=== PATIENT | female | born 1950 | race Caucasian/White ===

== ENCOUNTER → 2016-04-24 | Outpatient (REF) | payer BC ==
[2016-04-24 12:09] LABS: ALBUMIN/GLOBULIN RATIO 1.29 (1.00-1.93); ALKALINE PHOSPHATASE 102 U/L (45-117); ALT/SGPT 28 U/L (12-78); ANION GAP 9 MEQ/L (8-16); AST/SGOT 23 U/L (15-37); BILIRUBIN,TOTAL 0.5 MG/DL (0.2-1.0); BLOOD UREA NITROGEN 12 MG/DL (7-18); CALCIUM LEVEL 8.5 MG/DL (8.8-10.2); CARBON DIOXIDE LEVEL 27 MEQ/L (21-32); CHLORIDE LEVEL 105 MEQ/L (98-107); CHOLESTEROL LEVEL 221 MG/DL (<200); CREATININE FOR GFR 0.88 MG/DL (0.55-1.02); FREE T4 0.75 NG/DL (0.76-1.46); GLOMERULAR FILTRATION RATE > 60.0 (>45); GLUCOSE, FASTING 92 MG/DL (80-110); POTASSIUM SERUM 4.2 MEQ/L (3.5-5.1); SODIUM LEVEL 141 MEQ/L (136-145); TOTAL PROTEIN 7.1 GM/DL (6.4-8.2); TRIGLYCERIDES LEVEL 337 MG/DL (<150)
== END ==
LOC: M LABDRAW1 11:23
PROVIDERS: ATTEND Physician Assistant Medical
DX: E78.2 Mixed hyperlipidemia (principal); I10 Essential (primary) hypertension; E03.9 Hypothyroidism, unspecified; E55.9 Vitamin D deficiency, unspecified

== ENCOUNTER → 2016-06-15 | Outpatient (REF) | payer BC ==
[2016-06-15 10:59] LABS: FREE T4 1.54 NG/DL (0.76-1.46)
== END ==
LOC: M LABDRAW1 07:51
PROVIDERS: ATTEND Emergency Medicine
DX: E03.9 Hypothyroidism, unspecified (principal)

== ENCOUNTER → 2016-09-19 | Outpatient (CLI) | payer BC ==
[~2016-09-19] MED LIST: LEVO25TA5 PO; MULT1TAB16 PO; OMEP40CA2 PO
[2016-09-19 16:50] LABS: ANION GAP 10 MEQ/L (8-16); BLOOD UREA NITROGEN 14 MG/DL (7-18); CALCIUM LEVEL 9.3 MG/DL (8.8-10.2); CARBON DIOXIDE LEVEL 27 MEQ/L (21-32); CHLORIDE LEVEL 106 MEQ/L (98-107); CREATININE FOR GFR 0.79 MG/DL (0.55-1.02); GLOMERULAR FILTRATION RATE > 60.0 (>45); GLUCOSE, FASTING 90 MG/DL (80-110); SODIUM LEVEL 143 MEQ/L (136-145)
[2016-09-19 17:00] LABS: BASO # 0.1 K/mm3 (0.0-0.2); BASO % 1.2 % (0.0-1.0); EOS # 0.2 K/mm3 (0.0-0.50); EOS % 3.3 % (0.0-3.0); LARGE UNSTAINED CELL # 0.1 K/mm3 (0.0-0.4); LARGE UNSTAINED CELL % 1.5 % (0.0-4.0); LYMPH # 1.8 K/mm3 (1.5-4.5); LYMPH % 30.4 % (24.0-44.0); MEAN CORPUSCULAR HEMOGLOBIN 32.5 pg (27.0-33.0); MEAN CORPUSCULAR HGB CONC 35.5 g/dl (32.0-36.5); MEAN CORPUSCULAR VOLUME 91.5 fl (80.0-96.0); MONO # 0.3 K/mm3 (0.0-0.8); MONO % 5.1 % (0.0-5.0); NEUTROPHILS # 3.4 K/mm3 (1.8-7.7); NEUTROPHILS % 58.5 % (36.0-66.0); PLATELET COUNT, AUTOMATED 254 k/mm3 (150-450); RED CELL DISTRIBUTION WIDTH 12.9 % (11.5-14.5); WHITE BLOOD COUNT 5.8 K/mm3 (4.0-10.0)
== END ==
LOC: M LRY 11:22
PROVIDERS: ATTEND Podiatrist
DX: Z01.818 Encounter for other preprocedural examination (principal)

== ENCOUNTER 2016-09-28 08:17 | Day surgery (SDC) | payer BC ==
[~2016-09-28] VITALS: Ht 152.4 cm; Wt 62.1 kg
[~2016-09-28 08:17] MED LIST changes: +BACITRACIN PWD 50,000 UNITS VIAL As Ordered ONE; +BUPIVACAINE HCL 0.5% 30 ML VIAL As Ordered ONE; +LIDOCAINE 2% MDV 20 ML VIAL As Ordered ONE; +NEOSPORIN GU IRRIG 20 ML VIAL As Ordered ONE; +ROPIvacaine 0.5% 30 ML INJECTION (J2795) As Ordered ONE; +dexameTHASONE 4 MG/ML 1ML VIAL (J1100) As Ordered ONE
[2016-09-28] MEDS ORDERED: LR 1,000 ML IV ONE (08:30)
[2016-09-28] MEDS ORDERED: LIDOCAINE 1% SDV 5 ML VIAL SQ ONE (09:00)
[2016-09-28] MEDS ORDERED: MIDAZOLAM INJ 2 MG/2 ML VIAL (J2250) As Ordered ONE (11:25)
[2016-09-28] MEDS ORDERED: KETAMINE HCL 200 MG/20 ML VIAL As Ordered ONE (11:25)
[2016-09-28] MEDS ORDERED: ONDANSETRON 4MG/2ML VIAL (J2405) As Ordered ONE (12:02)
[2016-09-28] MEDS ORDERED: LIDOCAINE 2% INJ 100 MG/5 ML SDV (FOR ANES.) As Ordered ONE (12:02)
[2016-09-28] MEDS ORDERED: dexameTHASONE 4 MG/ML 1ML VIAL (J1100) As Ordered ONE (12:02)
[2016-09-28] MEDS ORDERED: PROPOFOL 200 MG/20 ML VIAL As Ordered ONE (12:02)
[2016-09-28] MEDS ORDERED: ONDANSETRON 4MG/2ML VIAL (J2405) IV PRN (13:00)
[2016-09-28] MEDS ORDERED: PERCOCET 5MG/325MG TAB PO PRN (13:00)
[2016-09-28] MEDS ORDERED: LR 1,000 ML IV SCH (13:00)
[2016-09-28] MEDS ORDERED: fentaNYL 100 MCG/2 ML INJECTION (J3010) IV PRN (13:00)
[2016-09-28 13:35] VITALS: BP 176/79
--- NOTE | 2016-09-29 17:12 | RO ---
DATE OF PROCEDURE: 09/28/2016 PREPROCEDURE DIAGNOSIS: Loss of fixation with distal migration DigiFuse 3rd toe right foot. POSTPROCEDURE DIAGNOSIS: Loss of fixation with distal migration DigiFuse 3rd toe right foot. PROCEDURE: Removal of screw 3rd toe right foot. SURGEON: Dr. Bobo Durand PROFESSIONAL APPLICATION DESIGNER: None ANESTHESIA: Local MAC. IRRIGATION: Dilute bacitracin, neomycin and polymyxin B solution. HEMOSTASIS: Ankle pneumatic tourniquet at 200 mmHg for 8 minutes. DESCRIPTION OF PROCEDURE: On 09/28/2016, this 66-year-old female was taken from her hospital room to the operating room and placed on the operating table in the supine position. Following the induction of IV sedation and local and regional anesthesia, the right lower extremity was prepped and draped in the usual aseptic manner. Attention was directed to the lateral surface of the toe where a screw could be palpated. A 1 cm incision was then placed on the lateral surface of the toe and dissection was carefully carried down to the screw, which a small margin could be palpated. Utilizing a periosteal elevator, the more medial margin of the screw head was freed from the surrounding osseous tissues to allow removal of the screw. However, the screwdriver could not be utilized since it would not fit in the available area next to the middle phalanx. Therefore, a needle route delivery service driver was used to grasp the screw and the screw was removed carefully, ensuring not to either fracture the toe or break the implant. Implant was removed. The wound was then flushed with copious amounts of dilute bacitracin, neomycin and polymyxin B solution. Closure was obtained with #4-0 Prolene in a simple interrupted type fashion. Attention was directed towards bandaging where a sterile compressive bandage was applied consisting of Adaptic, 4 x 4's, 4 x 4 splints, Antonio, Kerlix and Coban. Ankle pneumatic tourniquet was rapidly deflated and instantaneous capillary filling time was noted in digits 1 through 5 of the patient's right foot. Patient having apparently tolerated the surgical procedure well was taken from the operating room to the recovery room with vital signs stable, patient afebrile, further monitoring by the anesthesia department. All surgical specimens removed during the operative procedure were sent to Pathology for gross and microscopic examination. Postoperative instructions given upon discharge. KIM
== END 2016-09-28 13:37 | disposition home or self-care (01) ==
LOC: M SDC 08:17
PROVIDERS: ATTEND Podiatrist
DX: T84.223A Displacement of internal fixation device of bones of foot and toes, initial encounter (principal); E03.9 Hypothyroidism, unspecified; K21.9 Gastro-esophageal reflux disease without esophagitis; M12.9 Arthropathy, unspecified; Z88.5 Allergy status to narcotic agent; Z79.899 Other long term (current) drug therapy
CPT/HCPCS: 20670; J1100; J2250; J2405

== ENCOUNTER → 2017-07-09 | Outpatient (REF) | payer BC ==
[2017-07-11 14:17] LABS: HPV HYBRID CAPTURE II Negative (Negative)
== END ==
LOC: M LAB REF 10:15
DX: Z01.419 Encounter for gynecological examination (general) (routine) without abnormal findings (principal)
CPT/HCPCS: G0123

== ENCOUNTER → 2017-07-16 | Outpatient (REF) | payer BC ==
[2017-07-16 12:34] LABS: TOTAL 25(OH) VITAMIN D 42.6 NG/ML (30.0-100.0)
[2017-07-16 12:47] LABS: ALBUMIN 3.7 GM/DL (3.2-5.2); ALBUMIN/GLOBULIN RATIO 1.03 (1.00-1.93); ALKALINE PHOSPHATASE 81 U/L (45-117); ALT/SGPT 24 U/L (12-78); ANION GAP 4 MEQ/L (8-16); AST/SGOT 21 U/L (7-37); BILIRUBIN,TOTAL 0.5 MG/DL (0.2-1.0); BLOOD UREA NITROGEN 14 MG/DL (7-18); CALCIUM LEVEL 8.9 MG/DL (8.8-10.2); CARBON DIOXIDE LEVEL 32 MEQ/L (21-32); CHLORIDE LEVEL 108 MEQ/L (98-107); CHOLESTEROL LEVEL 216 MG/DL (<200); CHOLESTEROL RISK RATIO 4.909 (<5); CREATININE FOR GFR 0.81 MG/DL (0.55-1.30); FREE T4 1.12 NG/DL (0.76-1.46); GLOMERULAR FILTRATION RATE > 60.0 (>45); GLUCOSE, FASTING 92 MG/DL (70-100); HDL CHOLESTEROL 44 MG/DL (>40); LDL CHOLESTEROL 132.6 MG/DL (<100); NON-HDL-C 172 MG/DL; POTASSIUM SERUM 4.5 MEQ/L (3.5-5.1); SODIUM LEVEL 144 MEQ/L (136-145); THYROID STIMULATING HORMONE 0.547 uIU/ML (0.358-3.740); TOTAL PROTEIN 7.3 GM/DL (6.4-8.2); TRIGLYCERIDES LEVEL 197 MG/DL (<150)
== END ==
LOC: M LABDRAW1 09:04
DX: I10 Essential (primary) hypertension (principal); E78.2 Mixed hyperlipidemia; E03.9 Hypothyroidism, unspecified; E55.9 Vitamin D deficiency, unspecified
CPT/HCPCS: 84443

== ENCOUNTER → 2018-06-10 | Outpatient (REF) | payer BC ==
[~2018-06-10] MED LIST changes: -BACITRACIN PWD 50,000 UNITS VIAL As Ordered ONE; -BUPIVACAINE HCL 0.5% 30 ML VIAL As Ordered ONE; -LIDOCAINE 2% MDV 20 ML VIAL As Ordered ONE; -NEOSPORIN GU IRRIG 20 ML VIAL As Ordered ONE; -ROPIvacaine 0.5% 30 ML INJECTION (J2795) As Ordered ONE; -dexameTHASONE 4 MG/ML 1ML VIAL (J1100) As Ordered ONE
[2018-06-10 12:07] LABS: BASO # 0.1 10^3/uL (0.0-0.2); BASO % 0.9 % (0.0-1.0); EOS # 0.2 10^3/uL (0.0-0.50); EOS % 4.1 % (0.0-3.0); HEMATOCRIT 41.3 % (36.0-47.0); HEMOGLOBIN 13.9 g/dl (12.0-15.5); LYMPH # 1.6 10^3/uL (1.5-4.5); LYMPH % 27.9 % (24.0-44.0); MEAN CORPUSCULAR HEMOGLOBIN 31.2 pg (27.0-33.0); MEAN CORPUSCULAR HGB CONC 33.7 g/dl (32.0-36.5); MEAN CORPUSCULAR VOLUME 92.8 fl (80.0-96.0); MONO # 0.5 10^3/uL (0.0-0.8); NEUTROPHILS # 3.2 10^3/uL (1.8-7.7); NEUTROPHILS % 57.7 % (36.0-66.0); PLATELET COUNT, AUTOMATED 261 10^3/uL (150-450); RED BLOOD COUNT 4.45 10^6/uL (4.00-5.40); WHITE BLOOD COUNT 5.6 10^3/uL (4.0-10.0)
[2018-06-10 12:41] LABS: ALBUMIN 3.5 GM/DL (3.2-5.2); ALT/SGPT 25 U/L (12-78); BILIRUBIN,DIRECT < 0.1 MG/DL (0.0-0.2); BILIRUBIN,TOTAL 0.5 MG/DL (0.2-1.0); BLOOD UREA NITROGEN 14 MG/DL (7-18); CALCIUM LEVEL 8.5 MG/DL (8.8-10.2); CARBON DIOXIDE LEVEL 29 MEQ/L (21-32); CHLORIDE LEVEL 108 MEQ/L (98-107); CREATININE FOR GFR 0.78 MG/DL (0.55-1.30); FREE T4 1.06 NG/DL (0.76-1.46); GLOMERULAR FILTRATION RATE > 60.0 (>45); GLUCOSE, FASTING 90 MG/DL (70-100); POTASSIUM SERUM 4.4 MEQ/L (3.5-5.1); SODIUM LEVEL 142 MEQ/L (136-145); THYROID STIMULATING HORMONE 0.547 uIU/ML (0.358-3.740); TOTAL 25(OH) VITAMIN D 43.6 NG/ML (30.0-100.0); TOTAL PROTEIN 7.1 GM/DL (6.4-8.2)
== END ==
LOC: M LABDRAW1 11:54
PROVIDERS: ATTEND Family Medicine
DX: I10 Essential (primary) hypertension (principal); E03.9 Hypothyroidism, unspecified; E55.9 Vitamin D deficiency, unspecified

== ENCOUNTER 2018-12-23 08:30 | Day surgery (SDC) | payer BC ==
[~2018-12-23] VITALS: Ht 177.8 cm; Wt 66.2 kg
[~2018-12-23 08:30] MED LIST changes: +LEVO100T5 PO; +NS 1,000 ML IV ONE; -OMEP40CA2 PO; +OMEP40CA97 PO
[2018-12-23] MEDS ORDERED: LIDOCAINE 2% INJ 100 MG/5 ML SDV (FOR ANES.) As Ordered ONE (11:09)
[2018-12-23] MEDS ORDERED: PROPOFOL 200 MG/20 ML VIAL As Ordered ONE (11:09)
--- NOTE | 2018-12-23 11:29 | ROOR ---
Patient Name: Linda Roberts Procedure Date: 12/23/2018 11:02 AM Date of : 1950 Age: 68 Room: [facility] Gender: Female Note Status: Finalized Procedure: Colonoscopy Indications: High risk colon cancer surveillance: Personal history of colonic polyps Providers: Dayne PAREDES MD Referring MD: NAE BANG NP Requesting Provider: Medicines: Monitored Anesthesia Care Complications: No immediate complications. Procedure: Pre-Anesthesia Assessment: - The heart rate, respiratory rate, oxygen saturations, blood pressure, adequacy of pulmonary ventilation, and response to care were monitored throughout the procedure. The Colonoscope was introduced through the anus and advanced to the terminal ileum, with identification of the appendiceal orifice and IC valve. The colonoscopy was somewhat difficult due to multiple diverticula in the colon. The patient tolerated the procedure well. The quality of the bowel preparation was good. Findings: The perianal and digital rectal examinations were normal. A 5 mm polyp was found in the cecum. The polyp was sessile. The polyp was removed with a cold snare. Resection and retrieval were complete. Multiple small and large-mouthed diverticula were found in the sigmoid colon, descending colon, hepatic flexure and ascending colon. There was evidence of diverticular spasm. Internal hemorrhoids were found during retroflexion. The hemorrhoids were moderate. The exam was otherwise without abnormality on direct and retroflexion views. Impression: - One 5 mm polyp in the cecum, removed with a cold snare. Resected and retrieved. - Moderate diverticulosis in the sigmoid colon, in the descending colon, at the hepatic flexure and in the ascending colon. There was evidence of diverticular spasm. - Internal hemorrhoids. - The examination was otherwise normal on direct and retroflexion views. Recommendation: - Repeat colonoscopy in 5 years for surveillance. Dayne Paredes MD Dayne PAREDES MD 12/23/2018 11:28:56 AM Electronically signed by Dayne PAREDES MD Number of Addenda: 0 Note Initiated On: 12/23/2018 11:02 AM Estimated Blood Loss: Estimated blood loss: none.
[2018-12-23 12:00] VITALS: BP 160/80
== END 2018-12-23 12:15 | disposition home or self-care (01) ==
LOC: M OPP 08:30
PROVIDERS: ATTEND Internal Medicine Gastroenterology
DX: Z12.11 Encounter for screening for malignant neoplasm of colon (principal); Z86.010 Personal history of colon polyps; D12.0 Benign neoplasm of cecum; K64.8 Other hemorrhoids; K57.30 Diverticulosis of large intestine without perforation or abscess without bleeding; K21.9 Gastro-esophageal reflux disease without esophagitis; E03.9 Hypothyroidism, unspecified; Z79.899 Other long term (current) drug therapy; Z88.5 Allergy status to narcotic agent

== ENCOUNTER → 2020-05-24 | Outpatient (CLI) | payer BC ==
[~2020-05-24] MED LIST changes: -NS 1,000 ML IV ONE
--- NOTE | 2020-05-24 10:08 | REPPI ---
INDICATION: M25.362 OTHER INSTABILITY LEFT KNEE COMPARISON: None. TECHNIQUE: AP, lateral, bilateral oblique and sunrise views. FINDINGS: Mild/moderate essentially age-related tricompartmental osteoarthritic degenerative changes include subtle cortical irregularity and very minimal early osteophyte formation primarily at the femoral condyles and superior margin of the patella. There is subchondral sclerosis along the tibial plateau and posterior patella with associated medial and patellofemoral joint space narrowing. Lateral view cannot exclude a small suprapatellar effusion. Small amounts of chondrocalcinosis are also suggested. No acute fracture or dislocation. IMPRESSION: Moderate relatively age-related arthritic degenerative changes. <Electronically signed by Yoni Robin > 05/24/20 1003
== END ==
LOC: M PLAIMG 09:08
PROVIDERS: ATTEND Nurse Practitioner Adult Health
DX: M25.362 Other instability, left knee (principal); M17.12 Unilateral primary osteoarthritis, left knee

== ENCOUNTER → 2020-06-04 | Outpatient (CLI) | payer BC ==
--- NOTE | 2020-06-04 10:52 | REP ---
INDICATION: PAIN LEFT KNEE. COMPARISON: 05/24/2020. TECHNIQUE: Standing AP view bilateral knees performed. FINDINGS: There is no acute fracture, dislocation or intrinsic bone disease. There is no significant joint space narrowing on the right. On the left there is moderate lateral joint space narrowing. IMPRESSION: Moderate lateral joint space narrowing on the left. <Electronically signed by Napoleon Lopez > 06/04/20 1043
== END ==
LOC: M SOG 08:33
PROVIDERS: ATTEND Orthopaedic Surgery Adult Reconstructive Orthopaedic Surgery
DX: M25.562 Pain in left knee (principal)

== ENCOUNTER → 2020-09-09 | Outpatient (CLI) | payer BC ==
[~2020-09-09] MED LIST changes: +OMEP40CA4 PO; -OMEP40CA97 PO
--- NOTE | 2020-09-09 15:58 | REP ---
INDICATION: INTERNAL DERANGEMENT. COMPARISON: None. TECHNIQUE: Sagittal spin-echo proton density, T2 STIR and T2 FLASH. Coronal spin-echo proton density and fat suppressed proton density. Axial fat suppressed proton density. FINDINGS: Grade 3 signal changes seen within a truncated posterior horn of the medial meniscus. No abnormal signal is seen in the anterior horn. There is grade 3 signal change seen in both anterior and posterior horns of the lateral meniscus with grade 2 signal change seen in the periphery from anterior to posterior. The posterior cruciate ligament is wavy and bowed but intact. The anterior cruciate ligament is indistinct. The quadriceps and patellar tendons are intact. There is T2 hyper signal seen within and surrounding the medial collateral ligament which is intact. The lateral collateral ligament is intact. There is patchy and linear T2 hyper signal seen in the medial patellar retinaculum at the patellar attachment. There is thinning and irregularity of all articular cartilages. There is tricompartmental marginal osteophytosis. There is lateral compartmental and patellofemoral joint space narrowing. Patchy T2 hyper signal is seen in the proximal lateral tibial metaphysis. Subchondral T2 hyper signal is seen in the anterolateral femoral condyle with a like finding seen in the posterolateral femoral condyle. There is a joint effusion. There is parapatellar plica. IMPRESSION: 1. The posterior horn of the medial meniscus is torn and due to meniscal truncation I cannot rule out a bucket-handle component. 2. Both anterior and posterior horns of the lateral meniscus are torn with a large peripheral component. 3. The anterior cruciate ligament is torn. 4. The medial collateral ligament is sprained. 5. Possible partial tear medial patellar retinaculum as described above. 6. Proximal lateral tibial metaphyseal marrow edema consistent with osseous contusion. 7. Tricompartmental degenerative changes with chondromalacia and osteophytosis along with lateral compartmental and patellofemoral joint space narrowing. 8. Focal subchondral edema in the anterior and posterolateral femoral condyle as described above. 9. There is a joint effusion. 10. Other findings as described above. <Electronically signed by Venkata Ruano > 09/09/20 [id number]
== END ==
LOC: M PLAIMG 14:38
PROVIDERS: ATTEND Orthopaedic Surgery Adult Reconstructive Orthopaedic Surgery
DX: M23.92 Unspecified internal derangement of left knee (principal); S83.242A Other tear of medial meniscus, current injury, left knee, initial encounter; X58.XXXA Exposure to other specified factors, initial encounter; Y92.9 Unspecified place or not applicable; Y93.9 Activity, unspecified; Y99.9 Unspecified external cause status

== ENCOUNTER 2020-11-19 09:17 | Outpatient (RCR) | payer BC ==
[2020-11-24] MEDS ORDERED: CVS1CAP5 PO (08:52)
== END 2020-12-05 ==
LOC: M PT 09:17
PROVIDERS: ATTEND Orthopaedic Surgery Adult Reconstructive Orthopaedic Surgery
DX: M23.52 Chronic instability of knee, left knee (principal)

== ENCOUNTER → 2020-11-23 | Outpatient (CLI) | payer BC ==
[~2020-11-23] MED LIST changes: +CVS1CAP5 PO
--- NOTE | 2020-11-23 15:27 | REP ---
INDICATION: CHRONIC INSTABILITY OF L KNEE. COMPARISON: None. TECHNIQUE: 3 x 3 mm increments using helical technique Ethan protocol. FINDINGS: At the left hip: There is mild to moderate asymmetric hip joint space narrowing with slight superolateral acetabular marginal osteophyte formation. Femoral head is spherical in shape. There is no acute fracture, dislocation, or subluxation. There is no definite subchondral cyst formation or subchondral sclerosis. At the left knee: There is tricompartmental marginal osteophytosis with asymmetric patellofemoral joint space narrowing. There is evidence of subchondral cyst formation and mild subchondral sclerosis involving the posterior lateral tibial plateau.. There is no acute fracture, dislocation, or subluxation. There does appear to be a degree of both medial and particularly lateral compartmental narrowing. At the ankle: The mortise is intact. There is no evidence of subchondral sclerosis or subchondral cyst formation. There is no acute fracture, dislocation, or subluxation. IMPRESSION: Degenerative changes and seen particularly at the knee as described above. <Electronically signed by Venkata Ruano > 11/23/20 [id number]
== END ==
LOC: M RAD 07:39
PROVIDERS: ATTEND Orthopaedic Surgery Adult Reconstructive Orthopaedic Surgery
DX: M23.52 Chronic instability of knee, left knee (principal); M17.12 Unilateral primary osteoarthritis, left knee

== ENCOUNTER → 2020-12-03 | Outpatient (CLI) | payer BC | LOC: M LABSMTC 10:16 | PROVIDERS: ATTEND Anesthesiology | DX: Z01.812 Encounter for preprocedural laboratory examination (principal); Z20.822 Contact with and (suspected) exposure to COVID-19 ==

== ENCOUNTER 2020-12-07 06:03 | Observation (INO) | payer BC ==
[~2020-12-07] VITALS: Ht 152.4 cm; Wt 63.5 kg
[2020-12-07] VITALS (7 sets, daily range): BP systolic 110–117; BP diastolic 56–69
[~2020-12-07 06:03] MED LIST changes: +ACETAMINOPHEN 500 MG TAB PO ONE; +LIDOCAINE 1% MDV 20ML VIAL SQ PRN; +LR 1,000 ML IV ONE; +NAPROXEN 250 MG TAB PO ONE; +NS 1,000 ML IV ONE; +PREGABALIN 25 MG CAP (LYRICA) PO ONE; +ROPIVA 125MG/EPINEPH 0.25MG/CLONID 40MCG/KETOR 15MG IN NS 50ML SYRINGE PA ONE; +TRANEXAMIC ACID INJection 1,000 MG in NS 50 ML IV ONE; +ceFAZolin SOD 2 GM in IV 1 EA IV ONE; +dexameTHASONE 4 MG/ML 1ML VIAL (J1100 PER 1MG) IV ONE
[2020-12-07] MEDS ORDERED: LIDOCAINE 2% 100MG/5ML SDV (FOR ANES.) As Ordered ONE (07:14)
[2020-12-07] MEDS ORDERED: propofoL 200 MG/20 ML VIAL As Ordered ONE ×2 (07:14→08:44)
[2020-12-07] MEDS ORDERED: MIDAZOLAM INJ 2MG/2ML VIAL (J2250 PER 1MG) As Ordered ONE (07:14)
[2020-12-07] MEDS ORDERED: fentaNYL 100 MCG/2 ML INJECTION (J3010) As Ordered ONE (07:14)
[2020-12-07] MEDS ORDERED: TRANEXAMIC ACID 100 MG/ML 10ML VIAL As Ordered ONE (07:16)
[2020-12-07] MEDS ORDERED: PHENYLephrine 500MCG 5ML (100MCG/ML) SYRINGE As Ordered ONE (07:58)
[2020-12-07] MEDS ORDERED: ePHEDrine SULFATE 25 MG/5 ML(5MG/ML) SYRINGE As Ordered ONE (07:58)
[2020-12-07] MEDS ORDERED: oxyCODONE 5MG TAB PO PRN ×3 (10:20→10:30)
[2020-12-07] MEDS ORDERED: ONDANSETRON 4MG/2ML VIAL IV PRN ×2 (10:20→10:30)
[2020-12-07] MEDS ORDERED: LR 1,000 ML IV SCH ×2 (10:20→10:35)
[2020-12-07] MEDS ORDERED: fentaNYL 100 MCG/2 ML INJECTION (J3010) IV PRN (10:20)
[2020-12-07] MEDS ORDERED: METOCLOPRAMIDE INJ 10MG/2ML VIAL (J2765 PER 1) IV PRN (10:20)
[2020-12-07] MEDS ORDERED: SENNA 8.6 MG TAB (SENOKOT) PO PRN (10:30)
[2020-12-07] MEDS ORDERED: traMADol 50 MG TAB PO PRN (10:30)
--- NOTE | 2020-12-07 10:38 | REP ---
INDICATION: POST OP /PACU COMPARISON: 06/04/2020. TECHNIQUE: AP and lateral left knee. FINDINGS: Total hip prosthesis appears to be in good position. Osseous structures are intact and well aligned. Postsurgical air is seen anteriorly in the soft tissues. IMPRESSION: Left knee prosthesis in good position. <Electronically signed by Napoleon Lopez > 12/07/20 1030
[2020-12-07 10:39] LABS: HEMATOCRIT 39.1 % (36.0-47.0); HEMOGLOBIN 13.3 g/dl (12.0-15.5); MEAN CORPUSCULAR HEMOGLOBIN 31.6 pg (27.0-33.0); MEAN CORPUSCULAR VOLUME 92.9 fl (80.0-96.0); PLATELET COUNT, AUTOMATED 229 10^3/uL (150-450); RED BLOOD COUNT 4.21 10^6/uL (4.00-5.40); WHITE BLOOD COUNT 9.5 10^3/uL (4.0-10.0)
--- NOTE | 2020-12-07 10:56 | ROOPDOC ---
[facility] Report Of Operation Report of Operation DATE OF PROCEDURE: 12/07/20 PREPROCEDURE DIAGNOSES: Left knee osteoarthritis POSTPROCEDURE DIAGNOSES: Left knee osteoarthritis PROCEDURE PERFORMED: Left Ethan total knee SURGEON: Dayne Jack MD SOCIAL MEDIA MARKETER: BETTIE Whaley ANESTHESIA: Spinal. ESTIMATED BLOOD LOSS: Approximately 80 mL. COMPLICATIONS: No known complications. REMARKS: Patient was seen in the preoperative area and her left knee was marked. Consent was obtained for the Ethan left total knee arthroplasty as well. Risks and benefits were discussed as previously described. Components: [email or web address] triathlon system press-fit 29 mm patella Size 2 tibia and size 2 femur CR 10 mm CS polyethylene FINDINGS: Tricompartmental osteoarthritis left knee SPECIMENS REMOVED: None PROCEDURE NOTE: The patient was seen in the preoperative area and her status was updated. [facility] plan was reviewed prior to surgery and adjusted appropriately. DESCRIPTION OF PROCEDURE: Patient was taken to the operating room and after a checklist was performed, the underwent a spinal anesthetic. The patient was t hen placed supine. The operative leg was then cleansed with chlorhexidine wash followed by 2 times alcohol swab followed by hydrogen peroxide wash. 2 chlorhexidine prep once were then used to clean the leg. The operative extremity was then prepped and draped in the standard sterile fashion. This was done utilizing the Ethan leg stein device. A surgical pause was then carried out followed by the surgical safety checklist. 2 stab hole incisions were made approximately 4 fingerbreadths below the tibial tubercle of the left knee for the tibial array pins which were placed. The midline incision over the knee followed by the medial arthrotomy was then carried out. This ellipsed out an old medially based curvilinear scar and followed its path. Cautery was used to control bleeders. The soft tissue and fat pad were removed using electrocautery. The femoral array pins were then placed in the medial femoral condyle. The femoral and tibial tracker sites were marked on the respective arrays. The arrays were then placed over the array pins. The hip center was checked followed by the medial and lateral condyles of the ankle. The registration of the femur and tibia then occurred using the arrays in the Ethan system. Osteophytes were removed at this point, as needed. The leg was then brought into extension and varus and valgus stresses were applied in extension and spoons were used for tensioning as well as a Gilliland in flexion of approximately 95 degrees. Once the soft tissue adjustments were made to the Ethan plan, the plan was carried out utilizing the robot. The 90 degree blade cuts were made first followed by the straight blade cuts. Once all the cuts were completed with the assistance of the Ethan robot, the rongeur and osteotome were used to remove the bone segments. A lamina hedis abstractor was used to help remove the medial lateral menisci remnants followed by a curved osteotome to remove any posterior osteophytes from the medial or lateral femoral condyles, as needed A trial femur was placed and secured with a pin. The tibial component was then placed with a 9 mm polyinsert. This was brought into extension and found to have appropriate stability in both flexion and extension. There was some persisted hyperextension, so the final poly insert was increased to a 10 mm. The leg was then brought into extension and the patella was measured using the caliper. A freehand cut using towel clips was used to remove the patellar surface. This was then clamped and reamed appropriately for the press-fit components. A trial was placed and taken through range of motion and found to be nice and stable. The tibia was then appropriately positioned with the correct amount of rotation lined up with the medial third of the tibial tubercle. This was pinned and the keel punch was completed followed by the four-point reaming for the press-fit component. The CR femur had the lug holes drilled. The RE CK local anesthetic cocktail was instilled in the standard fashion. The wound was thoroughly irrigated with pulse lavage. The tibia was then press-fit in position using the mallet and impactors. The femur was then flexed high and positioned aligning the lug holes. This component was impacted then brought out into 90 degrees and impacted further to avoid anywhere to the metal components. The 10 mm polyethylene insert was then placed and impacted. The leg was brought into extension and the press-fit polyethylene patellar component was tightened and impacted utilizing the compression device The leg was taken through stable range of motion. It was thoroughly irrigated. Electrocautery was used to control any bleeders. A layered closure using #1 Vicryl followed by strata fix for the arthrotomy. #1 Vicryl to close down the subcutaneous tissue followed by running subcutaneous 2.0 and then a three-point 0 Monocryl subcuticular stitch antibacterial. Layered irrigation with saline and Betadine occurred. Steri-Strips were applied followed by the Mepilex dressing Patient tolerated the procedure well with no known complications. They were taken to the recovery room in stable condition. The patient will be admitted to the hospitalist service with plan for evaluation with physical therapy and possible discharge home tomorrow. DAYNE JACK MD Dec 07, 2020 10:55
[2020-12-07] MEDS ORDERED: NAPROXEN 250 MG TAB PO SCH (11:00)
[2020-12-07 11:05] LABS: HEMOGLOBIN A1c 5.5 %
[2020-12-07 11:15] LABS: BLOOD UREA NITROGEN 13 MG/DL (7-18); CARBON DIOXIDE LEVEL 26 MEQ/L (21-32); CHLORIDE LEVEL 106 MEQ/L (98-107); GLOMERULAR FILTRATION RATE > 60.0 (>45); GLUCOSE, FASTING 165 MG/DL (70-100); POTASSIUM SERUM 3.3 MEQ/L (3.5-5.1); SODIUM LEVEL 139 MEQ/L (136-145)
[2020-12-07] MEDS: LACTOBACILLUS ACIDOPHILUS CAP (BACID) PO SCH (12:12)
[2020-12-07] MEDS: ACETAMINOPHEN TAB 650MG DOSE (2X325MG) PO SCH ×2 (12:12→17:12)
[2020-12-07] MEDS: ASPIRIN 81MG ENTERIC TABLET PO SCH ×2 (12:12→21:36)
--- NOTE | 2020-12-07 13:22 | HPEPDOC ---
[facility] Medical History & Physical Date of Admission Dec 07, 2020 Date of Service: Dec 07, 2020 Attending Physician: SELENA PETTIT MD History and Physical CHIEF COMPLAINT: Admission s/p L knee TKA HISTORY OF PRESENT ILLNESS: 70 yo W with a history of osteoarthritis and remote trauma to L knee >30y ago requiring surgery, who was is being admitted s/p an elective L TKA by Dr. Velez. She has a medical history significant for colonic polyps for which she had her last colonoscopy in 2018 with a polyp removal, GERD and hypothyroidism. She otherwise reports that she has been feeling well and completed her preoperative evaluation with her PCP that was unremarkable and denies any recent fevers, chills, chest pain, dyspnea, palpitations, N/V/D/constipation, hematemesis, hemoptysis, melena or hematochezia. On my evaluation, she was comfortably and had no pain at all. PAST MEDICAL HISTORY: Colonic polyps GERD Hypothyroidism Osteoarthritis PAST SURGICAL HISTORY: s/p L TKA remote L knee surgery >30y ago colonoscopies SOCIAL HISTORY: Tobacco use: None ETOH: None ALLERGIES: Please see below. REVIEW OF SYSTEMS: 10 point ROS was grossly negative. At present while supine, her L knee does not have any pain. She does have pain with movement. HOME MEDICATIONS: Please see below. PHYSICAL EXAMINATION: VITAL SIGNS: see below GENERAL APPEARANCE: NAD HEENT: NCAT, EOMI, MMM CARDIOVASCULAR: RRR< systolic murmur, loudest at LUSB LUNGS: CTAB, breathing comfortably on room air ABDOMEN: Normoactive bowel sounds, soft, NTND MUSCULOSKELETAL: L knee in postop tiffany bandaging with circumferential icepack, toes and ankle with full range of motion.. RLE wnl. EXTREMITIES: WWP, no LE edema NEUROLOGICAL: CM3-12 intact, no dysarthria PSYCHIATRIC: Aox3 LABORATORY DATA: WNC 9.5 Hgb 13.3 platelets 229 na 139 K 3.3 (repleting) Cr 0.9 glucose 165 a1c 5.5 IMAGING: Postop L knee XR: showed a prosthesis in good position MICROBIOLOGY: Please see below. ASSESSMENT: 70 yo W with a history of osteoarthritis and remote trauma to L knee >30y ago requiring surgery, who was is being admitted s/p an elective L TKA. PLAN: L knee osteoarthritis s/p L TKA: -Ortho onboard -POD 0 -No pain at present while supine -Pain management with Percocet PRN for severe pain, naproxen BID, and tramadol PRN for moderate pain, per ortho -ASA 81 BID per ortho for DVT ppx -is on periop ancef per ortho -PT/OT per ortho Hypothyroidism: -continue home Synthroid GERD: -continue home omeprazole Vital Signs Vital Signs Date Time Temp Pulse Resp B/P (MAP) Pulse Ox O2 Delivery O2 Flow Rate FiO2 12/07/20 11:35 97.4 90 18 115/57 (76) 95 Room Air Laboratory Data Labs 24H Laboratory Tests 2 12/07/20 10:15: Bedside Glucose (Misc Panel) 167H 12/07/20 10:25: Nucleated Red Blood Cells % (auto) 0.0, Anion Gap 7L, Glomerular Filtration Rate > 60.0, Estimated Mean Plasma Glucose 111H, Hemoglobin A1c 5.5, Calcium Level 9.0 CBC/BMP Laboratory Tests 12/07/20 10:25 Home Medications Scheduled Lactobacillus Combination No.4 (Probiotic) 1 Each Capsule, 1 CAP PO DAILY Levothyroxine Sodium (Levothyroxine Sodium) 100 Mcg Tablet, 88 MCG PO DAILY Omeprazole (Omeprazole) 40 Mg Cap, 40 MG PO DAILY Allergies Coded Allergies: codeine (Verified Adverse Reaction, Unknown, SEVERE N/V, 12/07/20) A-FIB/CHADSVASC A-FIB History Current/History of A-Fib/PAF?: No Current PO Anticoag Therapy: No Age/Risk Factor Scoring CHADSVASC: CHADSVASC Response (Comments) Value Age Risk Factor Age 65-74 years old 1 Gender Risk Factor Female 1 Hx of CHF No 0 Hx of HTN No 0 Hx of Stroke/TIA/or VTE No 0 Hx of Diabetes No 0 Hx of Vascular Disease No 0 Total 2 Treatment Treatment ordered: NONE Reason Anticoagulant not given: Not indicated/[id number] SELENA PETTIT MD Dec 07, 2020 13:22
[2020-12-07] MEDS ORDERED: POTASSIUM CHLORIDE 10MEQ SR TABLET PO ONE (14:00)
[2020-12-07] MEDS: ceFAZolin SOD 2 GM in IV 1 EA IV SCH (17:12)
[2020-12-07] MEDS: NAPROXEN 250 MG TAB PO SCH (21:36)
[2020-12-07] MEDS: DOCUSATE SODIUM 100MG CAPSULE PO SCH (21:36)
[2020-12-08] VITALS: BP 110/61
[2020-12-08] MEDS: ceFAZolin SOD 2 GM in IV 1 EA IV SCH (01:01)
[2020-12-08] MEDS: ACETAMINOPHEN TAB 650MG DOSE (2X325MG) PO SCH ×3 (01:01→11:35)
[2020-12-08 02:00] VITALS: BP 109/59
[2020-12-08 06:00] VITALS: BP 109/56
[2020-12-08] MEDS ORDERED: LEVOTHYROXINE 88MCG TABLET (0.088 MG) PO SCH (06:00)
[2020-12-08 07:00] LABS: HEMATOCRIT 36.6 % (36.0-47.0); HEMOGLOBIN 12.3 g/dl (12.0-15.5); MEAN CORPUSCULAR HEMOGLOBIN 31.5 pg (27.0-33.0); MEAN CORPUSCULAR HGB CONC 33.6 g/dl (32.0-36.5); MEAN CORPUSCULAR VOLUME 93.6 fl (80.0-96.0); PLATELET COUNT, AUTOMATED 225 10^3/uL (150-450); RED BLOOD COUNT 3.91 10^6/uL (4.00-5.40)
[2020-12-08 07:30] LABS: BLOOD UREA NITROGEN 13 MG/DL (7-18); CALCIUM LEVEL 8.9 MG/DL (8.8-10.2); CARBON DIOXIDE LEVEL 26 MEQ/L (21-32); CHLORIDE LEVEL 110 MEQ/L (98-107); CREATININE FOR GFR 0.76 MG/DL (0.55-1.30); GLOMERULAR FILTRATION RATE > 60.0 (>45); GLUCOSE, FASTING 115 MG/DL (70-100); POTASSIUM SERUM 4.7 MEQ/L (3.5-5.1); SODIUM LEVEL 141 MEQ/L (136-145)
[2020-12-08] MEDS: DOCUSATE SODIUM 100MG CAPSULE PO SCH (08:07)
[2020-12-08] MEDS: NAPROXEN 250 MG TAB PO SCH (08:08)
[2020-12-08] MEDS ORDERED: OMEPRAZOLE 20 MG CAP PO SCH (09:00)
[2020-12-08] MEDS ORDERED: FERROUS SULFATE 325MG TAB PO SCH (09:00)
[2020-12-08] MEDS ORDERED: ASCORBIC ACID 500 MG TAB PO SCH (09:00)
[2020-12-08 09:45] VITALS: BP 112/60
[2020-12-08] MEDS: LACTOBACILLUS ACIDOPHILUS CAP (BACID) PO SCH (11:35)
[2020-12-08] MEDS: ASPIRIN 81MG ENTERIC TABLET PO SCH (11:35)
[2020-12-08] MEDS ORDERED: TRAM50TA2 PO (13:29)
[2020-12-08] MEDS ORDERED: ACET1TAB55 PO (13:29)
[2020-12-08] MEDS ORDERED: COLA100C5 PO (13:29)
[2020-12-08] MEDS ORDERED: ASPI-551 PO (13:29)
--- NOTE | 2020-12-08 13:31 | IPNPDOC ---
Text Note Date of Service The patient was seen on 12/08/20. NOTE POD 1 left mandeep TKA Patient states that she is feeling well, reports mild pain to the medial aspect of her left knee that is greatly relieved with the ice pack. She also reports some pain to the ankle which is suspected to be a result of the positioning device used during surgery. She has been utilizing an ice pack for this as well with adequate relief. Denies CP or SOB. Has mobilized to BR multiple times with walker. Bulky dressing intact, taken down. No staining to dressing. Grossly NVI to light touch to left foot and ankle. Palpable DP and PT pulses. Doing ankle pumps and moving toes. Of note, the patient has a mild dry cough this morning. PACU x-ray imaging shows prosthesis in position with no obvious complications. Plan for DC home when able after Hospitalist and PT eval. VS,Fishbone, I+O VS, Fishbone, I+O Laboratory Tests 12/07/20 10:25 12/08/20 06:03 Vital Signs Date Time Temp Pulse Resp B/P (MAP) Pulse Ox O2 Delivery O2 Flow Rate FiO2 12/08/20 06:00 97.4 69 18 109/56 (73) 97 Room Air I&O- Last 24 Hours up to 6 AM 12/08/20 05:59 Intake Total 2450 ml Output Total 180 ml Balance 2270 ml DELFIN MOORE Dec 08, 2020 08:18
[2020-12-08 13:35] VITALS: BP 112/70
--- NOTE | 2020-12-08 13:37 | DS.PDOC ---
Discharge Summary General Date of Admission 12/07/2020 Date of Discharge 12/08/2020 Attending Physician: SELENA PETTIT MD Discharge Summary PROCEDURES PERFORMED DURING STAY: L TKA by Dr. Velez on 12/07/2020 ADMITTING DIAGNOSES: L knee pain DISCHARGE DIAGNOSES: L knee osteoarthritis s/p elective L TKA History of Colonic polyps GERD Hypothyroidism Osteoarthritis COMPLICATIONS/CHIEF COMPLAINT: Left Knee Osteoarthritis. HISTORY OF PRESENT ILLNESS: 70 yo W with a history of osteoarthritis and remote trauma to L knee >30y ago requiring surgery, who was admitted s/p an elective L TKA by Dr. Velez. She has a medical history significant for colonic polyps for which she had her last colonoscopy in 2019 with a polyp removal, GERD and hypothyroidism. She otherwise reported that she has been feeling well and completed her preoperative evaluation with her PCP that was unremarkable and denied any recent fevers, chills, chest pain, dyspnea, palpitations, N/V/D/constipation, hematemesis, hemoptysis, melena or hematochezia. On my evaluation, she was comfortably and had no pain at all post her surgery. HOSPITAL COURSE: She was started on post op pain medication with well controlled pain and minimal medication needs, and was started on ASA 81 BID per ortho for DVT ppx. Her course was uncomplicated. She ambulated with PT/OT on POD1 and did very well and is now being discharged home to follow up with ortho and PCP within 7d. DISCHARGE MEDICATIONS: Please see below. ALLERGIES: Please see below. PHYSICAL EXAMINATION ON DISCHARGE: VITAL SIGNS: Please see below. PHYSICAL EXAMINATION: VITAL SIGNS: see below GENERAL APPEARANCE: NAD HEENT: NCAT, EOMI, MMM CARDIOVASCULAR: RRR< systolic murmur, loudest at LUSB LUNGS: CTAB, breathing comfortably on room air ABDOMEN: Normoactive bowel sounds, soft, NTND MUSCULOSKELETAL: L knee in postop tiffany bandaging. EXTREMITIES: WWP, no LE edema NEUROLOGICAL: CM3-12 intact, no dysarthria PSYCHIATRIC: Aox3 LABORATORY DATA: Please see below IMAGING: Postop L knee XR: showed a prosthesis in good position PROGNOSIS: Good ACTIVITY: As tolerated, DIET: Regular DISCHARGE PLAN: Home with services DISPOSITION: Home with services DISCHARGE INSTRUCTIONS: Home with services Tramadol PRn for severe pain Ortho and PCP within 1 w of discharge ITEMS TO FOLLOWUP ON ON OUTPATIENT: s/p L TKA DISCHARGE CONDITION: Stable TIME SPENT ON DISCHARGE: 33 minutes. Vital Signs/I&Os Vital Signs Date Time Temp Pulse Resp B/P (MAP) Pulse Ox O2 Delivery O2 Flow Rate FiO2 12/08/20 09:45 97.8 82 20 112/60 (77) 96 Room Air I&O- Last 24 Hours up to 6 AM 12/08/20 06:00 Intake Total 2750 ml Output Total 180 ml Balance 2570 ml Laboratory Data Labs 24H Laboratory Tests 2 12/08/20 06:03: Nucleated Red Blood Cells % (auto) 0.0, Anion Gap 5L, Glomerular Filtration Rate > 60.0, Calcium Level 8.9 CBC/BMP Laboratory Tests 12/08/20 06:03 Discharge Medications Scheduled Acetaminophen (Acetaminophen) 325 Mg Tablet, 650 MG PO Q6H Aspirin (Aspirin EC) 81 Mg Tablet.dr, 81 MG PO BID Docusate Sodium (Colace) 100 Mg Capsule, 100 MG PO BID Lactobacillus Combination No.4 (Probiotic) 1 Each Capsule, 1 CAP PO DAILY, (Reported) Levothyroxine Sodium (Levothyroxine Sodium) 100 Mcg Tablet, 88 MCG PO DAILY, (Reported) Omeprazole (Omeprazole) 40 Mg Cap, 40 MG PO DAILY, (Reported) Scheduled PRN Tramadol HCl (Tramadol HCl) 50 Mg Tablet, 50 MG PO Q8HP PRN for MILD PAIN (PS 1- 4) Allergies Coded Allergies: codeine (Verified Adverse Reaction, Unknown, SEVERE N/V, 12/07/20) SELENA PETTIT MD Dec 08, 2020 13:36
== END 2020-12-08 15:05 | disposition home health service (06) ==
LOC: M SDC 06:03 → M MS5PR 06:04 → M SDC 12-08 15:05
PROVIDERS: ADMIT Internal Medicine; ATTEND Internal Medicine
DX: M17.12 Unilateral primary osteoarthritis, left knee (principal); E03.9 Hypothyroidism, unspecified; K21.9 Gastro-esophageal reflux disease without esophagitis; Z79.899 Other long term (current) drug therapy; Z88.5 Allergy status to narcotic agent
CPT/HCPCS: 27447; 36415; 73560; 80048; 83036; 85027; 88304; 88311; 96365; 96366; 96375; 97110; 97116; 97161; 97165; 97530; C1776; J0690; J1100; J2250; J2370; J3010

== ENCOUNTER → 2020-12-10 | Outpatient (REF) | payer BC ==
[~2020-12-10] MED LIST changes: +ACET1TAB55 PO; -ACETAMINOPHEN 500 MG TAB PO ONE; +ASPI-551 PO; +COLA100C5 PO; -LIDOCAINE 1% MDV 20ML VIAL SQ PRN; -LR 1,000 ML IV ONE; -NAPROXEN 250 MG TAB PO ONE; -NS 1,000 ML IV ONE; -PREGABALIN 25 MG CAP (LYRICA) PO ONE; -ROPIVA 125MG/EPINEPH 0.25MG/CLONID 40MCG/KETOR 15MG IN NS 50ML SYRINGE PA ONE; +TRAM50TA2 PO; -TRANEXAMIC ACID INJection 1,000 MG in NS 50 ML IV ONE; -ceFAZolin SOD 2 GM in IV 1 EA IV ONE; -dexameTHASONE 4 MG/ML 1ML VIAL (J1100 PER 1MG) IV ONE
[2020-12-10 14:48] LABS: HEMATOCRIT 35.3 % (36.0-47.0); HEMOGLOBIN 11.9 g/dl (12.0-15.5); MEAN CORPUSCULAR HEMOGLOBIN 31.7 pg (27.0-33.0); MEAN CORPUSCULAR HGB CONC 33.7 g/dl (32.0-36.5); MEAN CORPUSCULAR VOLUME 94.1 fl (80.0-96.0); PLATELET COUNT, AUTOMATED 225 10^3/uL (150-450); RED BLOOD COUNT 3.75 10^6/uL (4.00-5.40); WHITE BLOOD COUNT 9.3 10^3/uL (4.0-10.0)
== END ==
LOC: M SHH 14:24
PROVIDERS: ATTEND Orthopaedic Surgery Adult Reconstructive Orthopaedic Surgery
DX: M17.12 Unilateral primary osteoarthritis, left knee (principal)

== ENCOUNTER → 2020-12-22 | Outpatient (CLI) | payer BC ==
--- NOTE | 2020-12-22 08:53 | REP ---
INDICATION: LT TKA FOLLOW UP. COMPARISON: 12/07/2020 TECHNIQUE: AP, lateral, sunrise views of the left knee FINDINGS: Patient is again noted to be status post satisfactory arthroplasty. Orthopedic components in stable satisfactory position. Surrounding soft tissues are grossly normal although mild soft tissue swelling cannot be excluded. IMPRESSION: Stable satisfactory left knee replacement. <Electronically signed by Yoni Robin > 12/22/20 0849
== END ==
LOC: M SOG 08:31
PROVIDERS: ATTEND Orthopaedic Surgery Adult Reconstructive Orthopaedic Surgery
DX: Z96.652 Presence of left artificial knee joint (principal)

== ENCOUNTER 2021-01-31 16:00 | Outpatient (RCR) | payer BC | END 2021-02-04 | LOC: M PT 16:00 | PROVIDERS: ATTEND Orthopaedic Surgery Adult Reconstructive Orthopaedic Surgery | DX: Z96.652 Presence of left artificial knee joint (principal) ==

== ENCOUNTER → 2021-12-16 | Outpatient (CLI) | payer BC | LOC: M SOG 08:00 | PROVIDERS: ATTEND Orthopaedic Surgery Adult Reconstructive Orthopaedic Surgery | DX: Z96.652 Presence of left artificial knee joint (principal); M16.0 Bilateral primary osteoarthritis of hip ==

== ENCOUNTER → 2022-07-05 | Outpatient (CLI) | payer BC, MEDICARE, OTHER | LOC: M SOG 07:49 | PROVIDERS: ATTEND Orthopaedic Surgery | DX: Z96.652 Presence of left artificial knee joint (principal); Z53.9 Procedure and treatment not carried out, unspecified reason ==

== ENCOUNTER → 2022-07-07 | Outpatient (CLI) | payer BC, MEDICARE, OTHER | LOC: M SOG 08:08 | PROVIDERS: ATTEND Orthopaedic Surgery | DX: M25.562 Pain in left knee (principal); Z96.652 Presence of left artificial knee joint ==

== ENCOUNTER → 2023-03-16 | Outpatient (CLI) | payer OTHER ==
[2023-03-16 13:12] LABS: HEMOGLOBIN A1c 5.6 % (4.0-6.0)
[2023-03-16 13:17] LABS: ALBUMIN 3.7 G/DL (3.2-5.2); ALKALINE PHOSPHATASE 74 U/L (46-116); ALT/SGPT 25 U/L (7.0-40); AST/SGOT 23 U/L (<34); BILIRUBIN,TOTAL 0.4 MG/DL (0.3-1.2); BLOOD UREA NITROGEN 14 MG/DL (9-23); CALCIUM LEVEL 9.1 MG/DL (8.3-10.6); CARBON DIOXIDE LEVEL 28 MMOL/L (20-31); CHLORIDE LEVEL 106 MMOL/L (98-107); CHOLESTEROL LEVEL 144 MG/DL (<200); CHOLESTEROL RISK RATIO 2.89 (<5); CREATININE FOR GFR 0.88 MG/DL (0.55-1.30); GLOMERULAR FILTRATION RATE > 60.0 (>39); GLUCOSE, FASTING 95 MG/DL (74-106); HDL CHOLESTEROL 49.8 MG/DL (>40); NON-HDL-C 94.2 MG/DL; SODIUM LEVEL 140 MMOL/L (136-145); TOTAL PROTEIN 6.8 G/DL (5.7-8.2); TRIGLYCERIDES LEVEL 131 MG/DL (<150)
[2023-03-16 13:19] LABS: FREE T4 0.99 NG/DL (0.89-1.76); THYROID STIMULATING HORMONE 4.491 uIU/ML (0.55-4.78)
== END ==
LOC: M WUC 09:08
PROVIDERS: ATTEND Registered Nurse
DX: R73.03 Prediabetes (principal); E03.9 Hypothyroidism, unspecified; E78.00 Pure hypercholesterolemia, unspecified

== ENCOUNTER → 2023-04-20 | Outpatient (CLI) | payer OTHER | LOC: M WUC 09:06 | PROVIDERS: ATTEND Nurse Practitioner Family | DX: M25.512 Pain in left shoulder (principal) ==

== ENCOUNTER 2024-05-09 07:03 | Day surgery (SDC) | payer MEDICARE, BC, OTHER ==
[~2024-05-09] VITALS: Ht 152.4 cm; Wt 60.2 kg
[~2024-05-09 07:03] MED LIST changes: +LIDOCAINE 2% 100MG/5ML SDV (FOR ANES.) As Ordered ONE; +OMEP1CAP73 PO; +ROSU5TAB49 PO; +propofoL 200 MG/20 ML VIAL As Ordered ONE
[2024-05-09] MEDS ORDERED: GLYCOPYRROLATE INJ 0.2 MG/ML 2 ML VIAL As Ordered ONE (08:57)
[2024-05-09 09:16] VITALS: TEMP 97.4
[2024-05-09 09:33] VITALS: BP 125/69; O2SAT 100
== END 2024-05-09 09:50 | disposition home or self-care (01) ==
LOC: M OPP 07:03
PROVIDERS: ATTEND Internal Medicine Gastroenterology
DX: K57.30 Diverticulosis of large intestine without perforation or abscess without bleeding (principal); Z86.0100 Personal history of colon polyps, unspecified; Z88.5 Allergy status to narcotic agent; Z79.899 Other long term (current) drug therapy
CPT/HCPCS: G0105; J1596

== ENCOUNTER 2024-08-20 08:05 | Day surgery (SDC) | payer MEDICARE, BC, OTHER ==
[~2024-08-20] VITALS: Ht 149.9 cm; Wt 62.6 kg
[~2024-08-20 08:05] MED LIST changes: +ACETAMINOPHEN 1000MG/100ML IV BAG As Ordered ONE; +LIDOCAINE 2% 100 MG/5 ML SDV (FOR ANES.) As Ordered ONE; -LIDOCAINE 2% 100MG/5ML SDV (FOR ANES.) As Ordered ONE; +ONDANSETRON 4MG 2ML VIAL As Ordered ONE; +SYNT50TA PO; +dexAMETHasone 4 MG/ML 1 ML VIAL As Ordered ONE; +dexmedeTOMIDine (4 MCG/ML) 200 MCG/50 ML BTL As Ordered ONE; -propofoL 200 MG/20 ML VIAL As Ordered ONE
[2024-08-20] MEDS: ceFAZolin SOD 2 GM IV ONCE IV ONE (10:16)
[2024-08-20] MEDS: LIDOCAINE 1% MDV 20 ML VIAL As Ordered ONE (10:25)
[2024-08-20] MEDS ORDERED: HYDROMORPHONE HCL 0.5 MG/0.5 ML SYRINGE IV PRN (11:50)
[2024-08-20] MEDS ORDERED: LR 1,000 ML IV SCH (11:50)
[2024-08-20] MEDS ORDERED: ONDANSETRON 4MG 2ML VIAL IV PRN (11:50)
[2024-08-20 13:00] VITALS: BP 115/63; TEMP 97.3; O2SAT 98
== END 2024-08-20 13:21 | disposition home or self-care (01) ==
LOC: M SDC 08:05
PROVIDERS: ATTEND Podiatrist Foot & Ankle Surgery
DX: M21.612 Bunion of left foot (principal); M20.12 Hallux valgus (acquired), left foot; M20.42 Other hammer toe(s) (acquired), left foot; M20.5X2 Other deformities of toe(s) (acquired), left foot; E78.5 Hyperlipidemia, unspecified; E03.9 Hypothyroidism, unspecified; K21.9 Gastro-esophageal reflux disease without esophagitis; Z79.899 Other long term (current) drug therapy; Z88.5 Allergy status to narcotic agent
CPT/HCPCS: 28285; 28297; 28308; 28310; 76000; C1713; J0131; J0665; J0690; J1100; J2405; J3010